=== PATIENT | female | born 1985 | race Caucasian/White ===

== ENCOUNTER 2024-01-09 05:12 | Inpatient (IN) | payer OTHER, SELFPAY ==
[2024-01-09] VITALS (9 sets, daily range): BP systolic 108–136; BP diastolic 66–100; BMI 24.9; BMI 24.0
[2024-01-09] MEDS: ZOFRAN 4 MG IV ×3 (02:11→06:36)
[2024-01-09] MEDS: MORPHINE SULFATE 4 MG IV (02:12)
[2024-01-09 02:18] LABS: % Basophils 0.7 % (0-2); % Eosinophils 2.8 % (0-6); % Immature Granulocytes 0.3 % (0-0.5); % Lymphocytes 34.8 % (20.5-51.1); % Monocytes 9.1 % (1.7-9.3); % Neutrophils 52.3 % (42.2-75.2); Absolute Basophils 0.1 10^3/uL (0-0.2); Absolute Eosinophils 0.2 10^3/uL (0-0.7); Absolute Lymphocytes 2.5 10^3/uL (1.2-3.4); Absolute Monocytes 0.7 10^3/uL (0.1-0.6); Absolute Neutrophils 3.8 10^3/uL (1.4-6.5); Hematocrit 34.6 % (37.0-47.0); Hemoglobin 11.6 g/dL (12.0-16.0); Mean Corp Hgb Conc. 33.5 g/dL (33.0-37.0); Mean Corpuscular Volume 83.4 fL (81.0-99.0); Nucleated Red Blood Cells % 0 %; Platelet Count 180 10^3/uL (130-400); Red Blood Cell Count 4.15 10^6/uL (4.20-5.40); Red Cell Dist. Width 14.8 % (11.5-14.5); White Blood Cell Count 7.2 10^3/uL (4.8-10.8)
--- NOTE | 2024-01-09 02:21 | ED.GENMED ---
History of Present Illness
<BRANDON Basilio - Last Filed: 01/09/24 04:35>
General
Chief Complaint: Abdominal Pain
Source: patient
Exam Limitations: none
Time Seen by Provider: 01/09/24 02:09
Nursing documentation reviewed up to this point in time: agreed with
History of Present Illness
History of Present Illness:
Patient is a 38yo F w/ no significant PMH who presents w/ abd pain x2hrs. Pain started suddenly and awoke pt from sleep. Reports pain started in LUQ and moved to RUQ. Pain is described as sharp, rated 8/10, and radiating to back. Worse w/
inspiration ad laying back. Better w/ leaning forward. Admits to nausea due to pain. Denies vomiting, diarrhea, and constipation. Pt admits to 2 recent medication changes. Weaned off Lexpro ending this weak and lisinopril changed to nifedipine which
pt stopped taking yesterday.
Review of Systems
<BRANDON Basilio - Last Filed: 01/09/24 04:35>
Review of Systems
Respiratory: Denies cough or trouble breathing
Cardiac: Denies chest pain or palpitations
ABD/GI: Reports abdominal pain and nausea; Denies vomiting, diarrhea or constipated
: Denies dysuria
Neurological: Denies dizzy, headache, weakness or numbness
Phy Exam
<BRANDON Basilio - Last Filed: 01/09/24 04:35>
General Physical Exam
General Presentation: severe distress
General age: appears stated age
General Skin: warm and dry
General Habitus: normal
General Mental: tearful
Cardiovascular Exam
Cardiovascular Exam: no edema, no gallop, no murmur and tachycardia
Pulmonary Exam
Pulmonary Exam: lungs clear, no respiratory distress, no rales, no crackles, no rhonchi and no wheezing
Gastrointestinal Exam
Gastrointestinal Exam: normal bowel sounds, soft, non distended and other (positive Humphrey sign )
Palpation: left upper quadrant: Minimal tenderness, left lower quadrant: No tenderness, right upper quadrant: Severe tenderness and right lower quadrant: No tenderness
Neurological Exam
Neurological Exam: alert, oriented x3, no motor deficits, no sensory deficits and speech normal
Course
<Madai Potts [facility] - Last Filed: 01/09/24 04:35>
Orders/Labs/Results
Orders:
Orders
01/09/24 02:03
IV Insert/Care/Rem.- Treatment PRN
Test Result ONCE
01/09/24 02:09
Complete Blood Count/With Diff Urgent
Comprehensive Metabolic Panel Urgent
HCG, Serum Qualitative Screen Urgent
Comment: Notify provider if positive test present
Lipase Urgent
01/09/24 02:10
Morphine Sulfate 4 mg .ROUTE .STK-MED ONE
Ondansetron Injectable [Zofran] 4 mg .ROUTE .STK-MED ONE
01/09/24 02:11
Morphine Sulfate 4 mg IV NOW STA
Ondansetron Injectable [Zofran] 4 mg IV NOW STA
01/09/24 02:18
US Abdomen Complete/Upper Urgent
Comment:
Reason For Exam: PAIN
01/09/24 03:44
HYDROmorphone [Dilaudid] 0.5 mg IV NOW STA
Ondansetron Injectable [Zofran] 4 mg IV NOW STA
01/09/24 04:03
Admit/Transfer Patient As Directed
Co-Sign Provider:
Level of Care: Inpatient admission
Assign to:: Medical/Surgical
Physician / Group: Florencio
Diagnosis: Symptomatic Cholelithiasis
Reason for Hospitalization: Symptomatic Cholelithiasis
Expected length of stay greater than two midnights?: Yes
ELOS- Estimated Length of Stay in days: 3
I certify the patient meets the requirements for IP care: Yes
PRN Pain Medication Management As Directed
May give lesser potent ordered pain med per pt: Yes
preference::
Protocol:: Medication orders for pain may be administered in a
manner that supports deferring to patient preference
when the pt is:
- Requesting an ordered lesser potent pain medication.
Least to most potent pain medications are defined
as: acetaminophen < NSAID < tramadol < opioids
(morphine, oxycodone, hydromorphone).
- Requesting a lesser dose of the same medication IF
ORDERED.
- Requesting a less intrusive route of administration
if both routes are prescribed by the provider (PO <
IV).
01/09/24 04:04
Code Status As Directed
Resuscitation Status: Full Code
Abnormal Lab Results
01/09/24
02:09
RBC 4.15 L 10^6/uL
(4.20-5.40)
Hgb 11.6 L g/dL
(12.0-16.0)
Hct 34.6 L %
(37.0-47.0)
RDW 14.8 H %
(11.5-14.5)
MPV 12.0 H fL
(7.4-10.4)
Absolute Monos (auto) 0.7 H 10^3/uL
(0.1-0.6)
ALT 36 H U/L
(0-35)
01/09/24 02:09
01/09/24 02:09
Vital Signs
Initial and Last Documented VS:
Initial Vital Signs
Temp Pulse Resp BP Pulse Ox
98.8 F 90 26 136/100 100
01/09/24 01:51 EST 01/09/24 01:51 EST 01/09/24 01:51 EST 01/09/24 01:51 EST 01/09/24 01:51 EST
Last Documented Vital Signs
Temp Pulse Resp BP Pulse Ox
98.8 F 90 26 126/80 100
01/09/24 01:51 EST 01/09/24 01:51 EST 01/09/24 01:51 EST 01/09/24 03:13 01/09/24 03:45
<Alhaji Concepcion DO - Last Filed: 01/09/24 03:47>
Orders/Labs/Results
Orders:
Orders
01/09/24 02:03
IV Insert/Care/Rem.- Treatment PRN
Test Result ONCE
01/09/24 02:09
Complete Blood Count/With Diff Urgent
Comprehensive Metabolic Panel Urgent
HCG, Serum Qualitative Screen Urgent
Comment: Notify provider if positive test present
Lipase Urgent
01/09/24 02:10
Morphine Sulfate 4 mg .ROUTE .STK-MED ONE
Ondansetron Injectable [Zofran] 4 mg .ROUTE .STK-MED ONE
01/09/24 02:11
Morphine Sulfate 4 mg IV NOW STA
Ondansetron Injectable [Zofran] 4 mg IV NOW STA
01/09/24 02:18
US Abdomen Complete/Upper Urgent
Comment:
Reason For Exam: PAIN
01/09/24 03:44
HYDROmorphone [Dilaudid] 0.5 mg IV NOW STA
Ondansetron Injectable [Zofran] 4 mg IV NOW STA
01/09/24 04:03
Admit/Transfer Patient As Directed
Co-Sign Provider:
Level of Care: Inpatient admission
Assign to:: Medical/Surgical
Physician / Group: Florencio
Diagnosis: Symptomatic Cholelithiasis
Reason for Hospitalization: Symptomatic Cholelithiasis
Expected length of stay greater than two midnights?: Yes
ELOS- Estimated Length of Stay in days: 3
I certify the patient meets the requirements for IP care: Yes
PRN Pain Medication Management As Directed
May give lesser potent ordered pain med per pt: Yes
preference::
Protocol:: Medication orders for pain may be administered in a
manner that supports deferring to patient preference
when the pt is:
- Requesting an ordered lesser potent pain medication.
Least to most potent pain medications are defined
as: acetaminophen < NSAID < tramadol < opioids
(morphine, oxycodone, hydromorphone).
- Requesting a lesser dose of the same medication IF
ORDERED.
- Requesting a less intrusive route of administration
if both routes are prescribed by the provider (PO <
IV).
01/09/24 04:04
Code Status As Directed
Resuscitation Status: Full Code
Abnormal Lab Results
01/09/24
02:09
RBC 4.15 L 10^6/uL
(4.20-5.40)
Hgb 11.6 L g/dL
(12.0-16.0)
Hct 34.6 L %
(37.0-47.0)
RDW 14.8 H %
(11.5-14.5)
MPV 12.0 H fL
(7.4-10.4)
Absolute Monos (auto) 0.7 H 10^3/uL
(0.1-0.6)
ALT 36 H U/L
(0-35)
01/09/24 02:09
01/09/24 02:09
Vital Signs
Initial and Last Documented VS:
Initial Vital Signs
Temp Pulse Resp BP Pulse Ox
98.8 F 90 26 136/100 100
01/09/24 01:51 EST 01/09/24 01:51 EST 01/09/24 01:51 EST 01/09/24 01:51 EST 01/09/24 01:51 EST
Last Documented Vital Signs
Temp Pulse Resp BP Pulse Ox
98.8 F 90 26 126/80 100
01/09/24 01:51 EST 01/09/24 01:51 EST 01/09/24 01:51 EST 01/09/24 03:13 01/09/24 03:45
<BRANDON Basilio - Last Filed: 01/09/24 04:35>
MDM/Problems Addressed
Differential Diagnosis Includes:
cholelithiasis, pancreatitis, cholecystitis
<BRANDON Basilio - Last Filed: 01/09/24 04:35>
*Critical Care Note
Total Time (30-74mins, 75-104mins- exclusive of procedures): Not Applicable
<Alhaji Concepcion DO - Last Filed: 01/09/24 03:47>
Update Note
Update Note:
Right upper quadrant ultrasound
IMPRESSION:
Cholelithiasis and gallbladder distention without gallbladder wall thickening, pericholecystic fluid, or sonographic Humphrey's sign to suggest acute cholecystitis.
ED Attending Note
<BRANDON Basilio - Last Filed: 01/09/24 04:35>
-
Portions of this chart may have been created with voice recognition software.� Occasional wrong word or��sound alike� substitutions may have occurred due to the inherent limitations of voice recognition software.
<Alhaji Concepcion DO - Last Filed: 01/09/24 03:47>
ED Attending Note
Patient seen and examined by attending physician: Yes
I performed the substantive portion of visit, reviewed & personally made and approve the management plan that is documented in note by myself or DEVI.: Yes
ED Attending Note:
38-year-old female presents with right upper quadrant abdominal pain that began 2 hours prior to arrival. Patient does report nausea and pain that wraps around her abdomen. Denies fever or chills. Did report some vomiting. Patient recently lost
80 pounds in the last 6 months purposefully with Zepbound. Patient quit tobacco denies alcohol or drug use. Patient was seen in conjunction with the PA student. I have reviewed and agree with the history and treatment plan presented. On my
independent physical exam, patient is awake, alert, and oriented x3 minimal acute distress at rest. Positive right upper quadrant abdominal pain consistent with Humphrey sign. No right lower or left lower quadrant abdominal pain. Skin is warm and
dry. Patient mentating appropriately.
Ultrasound shows cholelithiasis without evidence of cholecystitis. On repeat exam, patient has right upper quadrant abdominal pain consistent with a Humphrey sign. Patient received several doses of pain medication while here. Patient to be admitted
to the hospitalist service
Discharge Plan
Departure
Patient Disposition: Admit
Date of Disposition: 01/09/24
Time of Disposition: 03:47
Admit to: Med/Surg
Presentation/result/management discussed w/ accepting MD/DO: Hospitalist
Condition: Fair
Discharge Problem:
gallstones, Biliary colic, Abdominal pain
Prescriptions:
No Action
No Current Medications
0
Referrals:
Jessie Alatorre PA-C [Family Provider] -
Interventions
Interventions:
*Risk Screen - Suicide Last Done: 01/09/24 01:51
*General Assessment Last Done: 01/09/24 02:18
*Neglect/Abuse Screening Last Done: 01/09/24 01:51
ED- Fall Risk Assessment Last Done: 01/09/24 02:18
*ED COVID-19 Vaccine History Last Done: 01/09/24 02:18
DC-Ovmdce-Lluygnolzg Assessment Last Done: 01/09/24 02:18
Discharge Date and Time
Print Language: BULGARIAN
[2024-01-09 02:42] LABS: ALT (SGPT) 36 U/L (0-35); AST (SGOT) 32 U/L (14-36); Albumin 4.2 g/dl (3.5-5.0); Alkaline Phosphatase 47 U/L (38-126); Blood Urea Nitrogen 11 mg/dl (7-17); Carbon Dioxide 26 mmol/L (22-30); Chloride 104 mmol/L (98-107); Estimated Creatinine Clearance 119 ml/min; Glucose 96 mg/dl (70-99); Lipase 204 U/L (23-300); Sodium 141 mmol/L (135-145); Total Bilirubin 0.3 mg/dl (0.2-1.3); Total Protein 6.9 g/dl (6.3-8.2); eGFR > 60.00
[2024-01-09 02:59] LABS: HCG, Serum Qualitative Screen Negative
[2024-01-09] MEDS: DILAUDID 0.5 MG IV ×2 (03:52→06:43)
--- NOTE | 2024-01-09 04:05 | HPS.HSE ---
Family Physician
-
Family Physician: GEORGETTE Hill
Chief Complaint
-
Abd Pain
History of Present Illness
Patient is a 38 y F with PMH significant for hypertension, anxiety and obesity who presents to ED complaining of abdominal pain. Patient states that she was feeling well yesterday. She woke around 11:30 PM with burning pain under her ribs. The
pain persisted and she developed nausea with a few episodes of non-bloody emesis at home. Her symptoms did not improve with time and patient presented to the ED for further evaluation.
Patient reports prior history of similar episodes attributed to gallbladder 'sludge' in her 20s. These episodes typically resolved after a few hours - which her current symptoms have not.
Patient also notes that she has lost 80 lbs since May 2023 on tirzepatide. She stopped taking this medication about 3-4 weeks ago.
Patient states that she is planning to try for another and - in preparation - she has weaned off of her Lexapro and stopped her lisinopril.
She is currently taking no prescription medications.
In the ED, patient is having persistent RUQ pain and nausea despite medications thus far.
Medical History
Past Medical History
Past Medical History: Reports Other
Additional Past Medical History:
Hypertension
Anxiety / Depression
Obesity
Past Surgical History: Reports Other
Additional Past Surgical History:
Appendectomy
Ovarian Cystectomy
Social History
Tobacco: Former Smoker (Quit smoking 4 years ago.)
Alcohol: Occasional
Drug: None
Family History
Family History: Not pertinent
Allergies / Home Medications
Allergies reflects when Allergies were last updated in [email or web address].
Home Medications with original date entered in [email or web address]
Allergy/Medication List:
Allergies
Allergy/AdvReac Type Severity Reaction Status Date / Time
No Known Allergies Allergy Verified 01/09/24 01:53 EST
Home Medications
No Meds [No Current Medications] 01/09/24
Review of Systems
-
History Source: Patient
A 12 point ROS was completed and negative except as noted: Yes
Constitutional: Denies Fever, Fatigue or Chills
EENT: Denies Sore Throat
Respiratory: Denies Cough or Trouble Breathing
Cardiac: Denies Chest Pain or Palpitations
Abdomen/GI: Reports Abdominal Pain, Nausea and Vomiting; Denies Diarrhea, Constipated, Bloody Stools or Black Stools
: Denies Dysuria or Flank Pain
Musculoskeletal: Denies Joint Pain or Edema
Neurological: Denies Dizzy or Headache
Psych: Denies Depression or Anxiety
Physical Exam
Vital Signs
Vital Signs
Temp Pulse Resp BP Pulse Ox
98.8 F 90 26 126/80 100
01/09/24 01:51 EST 01/09/24 01:51 EST 01/09/24 01:51 EST 01/09/24 03:13 01/09/24 03:45
Physical Exam
General: Other (38y F in mild distress due to pain.)
HEENT: Moist mucous membranes and PERRLA
Respiratory: Clear; No Wheezes, Rales or Rhonchi
Cardiac: S1/S2 and Regular Rhythm; No Murmur
GI: Soft, Non Distended, Normal Bowel Sounds and Other (Pos RUQ tenderness.)
Musculoskeletal: No Clubbing, No Cyanosis and No Edema
Neuro: AO x 3
Laboratory Results
-
01/09/24 02:09
01/09/24 02:09
Laboratory Results
Total Bilirubin 0.3 mg/dl (0.2-1.3) 01/09/24 02:09
AST 32 U/L (14-36) 01/09/24 02:09
ALT 36 U/L (0-35) H 01/09/24 02:09
Alkaline Phosphatase 47 U/L (38-126) 01/09/24 02:09
Lipase 204 U/L (23-300) 01/09/24 02:09
Impression/Plan
-
A/P: Patient is a 38y F with PMH significant for hypertension and anxiety / depression who presents to ED complaining of sudden onset of RUQ pain and N/V this evening.
Symptomatic Cholelithiasis
- Admit for further evaluation and treatment.
- Patient presents with RUQ pain and N/V.
- US shows gallstones without evidence of pericholecystic fluid, wall thickening, ductal dilation, etc.
- Afebrile and non-toxic. LFTs are unremarkable.
- No current evidence of acute cholecystitis, ascending cholangitis or biliary obstruction.
- Supportive care with pain control, antiemetics, etc.
- Surgery evaluation for eventual cholecystectomy.
Benign Hypertension
- Stable. BP appears well-controlled at present - even off of medications.
- Follow for any changes.
History of Obesity
- s/p significant weight gain with diet, exercise and tirzepatide.
- Tirzepatide may contribute to cholelithiasis / cholecystitis - patient stopped this 3-4 weeks ago.
- Also note that she does have prior h/o GB disease / symptoms as well, prior to beginning this medication.
DVT Prophylaxis: SCDs
Code Status: Full
[2024-01-09] MEDS: LR 1000 IV (06:36)
--- NOTE | 2024-01-09 06:55 | PTCARENOTE ---
New admit to 2S from ER. Able to ambulate to room bed independently, A&Ox3, VSS, vomiting upon arrival, given Zofran - see MAR, states 09/14 abdominal pain - given Dilaudid, see MAR. Admission questions completed, report passed along to dayshift
nurse.
[2024-01-09] MEDS: NSS (PRESERVATIVE FREE) 10 ML IV (07:39)
[2024-01-09] MEDS: PROTONIX IV 40 MG IV (07:39)
[2024-01-09] MEDS: COMPAZINE 10 MG IV (07:50)
[2024-01-09 08:16] LABS: Magnesium 1.8 mg/dl (1.6-2.3)
--- NOTE | 2024-01-09 08:57 | W.PN.HOSP.TC ---
Today's Communication/Plan
-
repeat labs this afternoon
IVF
F/U GS recommendations
pain control/ anti-emetics
Assessment / Plan
Assessment / Plan
Ms. Kaleigh Dickinson is a 38y woman with PMH significant for hypertension and anxiety / depression who presents to ED complaining of sudden onset of RUQ pain and N/V this evening.
RUQ US
IMPRESSION:
Mild biliary sludge. Cholelithiasis. No sonographic evidence of acute cholecystitis.
Slight distention of the common bile duct, 7 mm. Recommend correlation with liver function tests.
The examination was performed after-hours on an emergency basis, with initial preliminary interpretation provided by [facility].
Symptomatic Cholelithiasis
- Patient presents with RUQ pain and N/V.
- US shows gallstones without evidence of pericholecystic fluid, wall thickening, ductal dilation, etc.
- Afebrile and non-toxic. LFTs are unremarkable.
- No current evidence of acute cholecystitis, ascending cholangitis or biliary obstruction.
- Supportive care with pain control, antiemetics, etc.
- Surgery evaluation for eventual cholecystectomy.
Benign Hypertension
- Stable. BP appears well-controlled at present - even off of medications.
- Follow for any changes.
History of Obesity
- s/p significant weight loss with diet, exercise and tirzepatide.
- Tirzepatide may contribute to cholelithiasis / cholecystitis - patient stopped this 3-4 weeks ago.
- Also note that she does have prior h/o GB disease / symptoms as well, prior to beginning this medication.
DVT Prophylaxis: SCDs
Code Status: Full
Anticipated Discharge: 24 - 48 hours
Subjective/Interval History
-
Date of Service: January 09, 2024
Objective Data
-
Labs:
Laboratory Results
01/09/24
02:09
WBC 7.2
Hgb 11.6 L
Hct 34.6 L
Plt Count 180
Sodium 141
Potassium 4.0
Chloride 104
Carbon Dioxide 26
BUN 11
Creatinine 0.7
Glucose 96
Calcium 10.0
Total Bilirubin 0.3
AST 32
ALT 36 H
Alkaline Phosphatase 47
Vital Signs:
Vital Signs
Temp Pulse Resp BP Pulse Ox
98.1 F 81 18 122/80 100
01/09/24 07:43 01/09/24 07:43 01/09/24 07:43 01/09/24 07:43 01/09/24 07:43
--- NOTE | 2024-01-09 12:11 | CON.GS ---
Consultation
-
Date/Time Consultation Requested: 01/09/2024, 06:30
Date/Time Consultation Performed: 01/09/2024, 09:45
Requesting Provider: Carlos Matias DO
Performing Provider: Nam Sawyer MD
Reason for Consultation: biliary colic
Medical History
-
Chief Complaint: RUQ abdominal pain
History of Present Illness:
38yo female with a past medical history of biliary colic, presents to the ER due to right upper quadrant abdominal pain. The patient states that she has had multiple gallbladder attacks in her 20s but this instance was much worse. Typically when
she is symptomatic, the pain only last a few hours and then subsides. Since admission to the ER her pain is much improved. She was nauseated and vomiting at home but this has since stopped. The patient is currently on Zepbound and has lost 80
pounds since May 2023. She stopped taking the medication about 4 weeks ago due to preparation and trying for another . Ultrasound of the abdomen shows mild biliary sludge with cholelithiasis. No sonographic evidence of acute
cholecystitis. There is slight distention of the common bile duct 7 mm. Her vital signs are normal. She has remained afebrile. Her WBC is 7.2. We have been consulted for further surgical opinion.
Past Medical History
Past Medical History: HTN, Psychiatric (anxiety/depression) and Other (obesity)
Social History
Tobacco: Former Smoker
Alcohol: Occasional
Drug: None
Family History
Family History: Reviewed & Not Pertinent
Allergies / Home Medications
Allergy/AdvReac Type Severity Reaction Status Date / Time
No Known Allergies Allergy Verified 01/09/24 01:53 EST
�Medication �Instructions �Recorded �Confirmed �Type
No Meds [No Current Medications] 01/09/24 01/09/24 History
Review of Systems
-
History Source: Patient
Abdomen/GI: Abdominal Pain (RUQ), Nausea and Vomiting
A 10 point review of systems was completed, and was negative except as per HPI.
Physical Exam
Vital Signs
Temp Pulse Resp BP Pulse Ox
98.1 F 81 18 122/80 100
01/09/24 07:43 01/09/24 07:43 01/09/24 07:43 01/09/24 07:43 01/09/24 07:43
01/08/24 01/09/24 01/10/24
07:59 06:59 06:59
Actual Weight
Body Mass Index (BMI) 24.0
Lab Results
01/09/24 02:09
WBC 7.2 10^3/uL (4.8-10.8) 01/09/24 02:09
Hgb 11.6 g/dL (12.0-16.0) L 01/09/24 02:09
Hct 34.6 % (37.0-47.0) L 01/09/24 02:09
Plt Count 180 10^3/uL (130-400) 01/09/24 02:09
Abs Immat Gran (auto) 0.0 10^3/uL (0-0.05) 01/09/24 02:09
Neutrophils % 52.3 % (42.2-75.2) 01/09/24 02:09
Physical Exam
General: Well Developed, Well Nourished and No Apparent Distress
GI: Soft, Non Distended and Tender (RUQ - mild)
Neuro: AO x 3
Psych: Calm
Data Reviewed
-
Ultrasound: Report Reviewed by me, Discussed with Physician and Discussed with Patient
Labs: Labs Reviewed by me, Discussed with Physician and Discussed with Patient
Old Records: Reviewed
Assessment / Plan
-
Assessment: 38-year-old female with a history of gallbladder attacks presents with right upper quadrant pain nausea and vomiting and found to have mild biliary sludge, cholelithiasis, and slight distention of the common bile duct.
Plan:
-May require a cholecystectomy. Will defer to general surgery tomorrow.
-Okay to start on clear liquid diet, n.p.o. at midnight.
-Antiemetics and pain medication as needed
[2024-01-09 14:11] LABS: ALT (SGPT) 31 U/L (0-35); AST (SGOT) 26 U/L (14-36); Albumin 3.4 g/dl (3.5-5.0); Alkaline Phosphatase 32 U/L (38-126); Blood Urea Nitrogen 8 mg/dl (7-17); Carbon Dioxide 26 mmol/L (22-30); Chloride 106 mmol/L (98-107); Estimated Creatinine Clearance 119 ml/min; Glucose 96 mg/dl (70-99); Sodium 141 mmol/L (135-145); Total Bilirubin 0.5 mg/dl (0.2-1.3); Total Protein 5.9 g/dl (6.3-8.2); eGFR > 60.00
--- NOTE | 2024-01-09 15:04 | CM ---
Pt presented from home w/ with pmhx significant for biliary cholic. Pt with c/o RUQ pain, N/V (now resolved). Ab US with +mild biliary sludge with cholelithiasis. ADAT, cont zofran and pain mgmt as needed, NPO s/p MN for possible lap choli-
pending Surgerical c/s tomorrow.
CM reviewed chart. Spoke w/pt, explained role and discussed anticipated dc plan/options. Pt resides w/ in a [place] w/1 thomas. [employer] I/amb and adls, working and driving. Family will transport at dc. There are no skilled needs noted at this time.
Nursing to encourage pt independence OOB to chair and w/toileting. Please consult CM/SW should dc planning needs change.
CM/SW will continue to follow to ensure a safe and timely dc.
[2024-01-09] MEDS: TYLENOL 650 MG PO (15:57)
[2024-01-10] MEDS: PROTONIX IV 40 MG IV (07:30)
[2024-01-10] MEDS: NSS (PRESERVATIVE FREE) 10 ML IV (07:30)
[2024-01-10 07:50] VITALS: BP 105/75
[2024-01-10 09:34] LABS: Hematocrit 34.8 % (37.0-47.0); Hemoglobin 11.6 g/dL (12.0-16.0); Mean Corp Hgb Conc. 33.3 g/dL (33.0-37.0); Mean Corpuscular Hgb 29.1 pg (27.0-31.0); Mean Corpuscular Volume 87.4 fL (81.0-99.0); Mean Platelet Volume 12.1 fL (7.4-10.4); Platelet Count 147 10^3/uL (130-400); Red Blood Cell Count 3.98 10^6/uL (4.20-5.40); Red Cell Dist. Width 15.1 % (11.5-14.5); White Blood Cell Count 5.8 10^3/uL (4.8-10.8)
--- NOTE | 2024-01-10 09:54 | W.SUR.PREOP ---
Pre-Operative Surgical Note
-
I have examined this patient prior to the performance of the scheduled procedure.
The patient's condition is unchanged from the time of the current History and
Physical and the patient is able to undergo the scheduled procedure.
--- NOTE | 2024-01-10 09:56 | W.PN.GS2 ---
Today's Communication / Plan
-
OR today
Assessment / Plan
-
This is a 38-year-old female who presents with right upper quadrant pain in the setting of multiple attacks over the past several years. Exam, imaging, blood work all consistent with early acute cholecystitis versus biliary colic.
Will plan for a laparoscopic cholecystectomy in the OR today.
N.p.o., IV fluids, IV antibiotics ordered.
Risks/Benefits/Alternatives, expected postoperative course and possible complications (bleeding, infection, injury to surrounding structures, acute/chronic pain) discussed at length. Patient wishes to proceed with surgery. All questions answered.
Consent obtained.
I spent 50 minutes in total for the care of this patient today including direct patient care and counseling, reviewing labs, imaging, coordination of care, as well as documentation.
Subjective Data
-
Date of Service: January 10, 2024
Interval Events:
No acute events overnight. Slept well. Pain Controlled. Denies Nausea/Vomiting.
Objective Data
-
Intake and Output
01/09/24 01/10/24 01/11/24
06:59 06:59 06:59
Intake Total 2160 / 2160
Balance 2160 / 2160
Intake:
Oral fluids 1200 / 1200
IV fluids (Total) 960 / 960
Other:
Number of approximated MODERATE 3
amounts of urine
Vital Signs
Temp Pulse Resp BP Pulse Ox
97.8 F 69 16 105/75 98
01/10/24 07:50 01/10/24 07:50 01/10/24 07:50 01/10/24 07:50 01/10/24 07:50
Lab Results
01/10/24 09:18
Calcium 9.0 mg/dl (8.4-10.2) 01/09/24 13:42
Magnesium 1.8 mg/dl (1.6-2.3) 01/09/24 02:09
Total Bilirubin 0.5 mg/dl (0.2-1.3) 01/09/24 13:42
AST 26 U/L (14-36) 01/09/24 13:42
ALT 31 U/L (0-35) 01/09/24 13:42
Alkaline Phosphatase 32 U/L (38-126) L 01/09/24 13:42
Total Protein 5.9 g/dl (6.3-8.2) L 01/09/24 13:42
Albumin 3.4 g/dl (3.5-5.0) L 01/09/24 13:42
Physical Exam
-
GENERAL/NEURO: Awake, Alert, no distress
CHEST: Unlabored breathing on RA
ABDOMEN: Soft, tender to palpation in the right upper quadrant.
[2024-01-10 10:24] LABS: ALT (SGPT) 581 U/L (0-35); AST (SGOT) 538 U/L (14-36); Albumin 3.4 g/dl (3.5-5.0); Alkaline Phosphatase 94 U/L (38-126); Blood Urea Nitrogen 8 mg/dl (7-17); Calcium 9.1 mg/dl (8.4-10.2); Carbon Dioxide 28 mmol/L (22-30); Chloride 105 mmol/L (98-107); Direct Bilirubin 0.2 mg/dl (0.0-0.4); Estimated Creatinine Clearance 119 ml/min; Glucose 84 mg/dl (70-99); Potassium 4.8 mmol/L (3.5-5.1); Sodium 141 mmol/L (135-145); Total Bilirubin 1.1 mg/dl (0.2-1.3); eGFR > 60.00
--- NOTE | 2024-01-10 11:57 | W.IMMPOSTOP ---
Surgical Immed Post Op Note
-
Primary Surgeon: Frederick Glover MD
Assisting Surgeon: None
Pre-op Diagnosis: Acute cholecystitis
Post-op Diagnosis: Same
Procedure Performed: Laparoscopic cholecystectomy with cholangiogram
Anesthesia Type: General
Specimen / Cultures: Gallbladder and contents
Estimated Blood Loss: 11 cc
Complications: None
Operative Findings: Early acute edematous cholecystitis. Critical view of safety obtained prior to cholangiogram which demonstrated no filling defects and normal biliary anatomy. 4 small cholesterol gallstones were milked out of the cystic duct
and removed prior to a cholangiogram. The duct was ligated with a clip followed by a 0 PDS Endoloop.
POST OP PLAN:
Imaging: None
Labs: Routine AM, if still here
Diet: Advance to Regular as tolerated
Analgesia: Tylenol 650mg q6 Aly, Indy 5mg q6 PRN, Dilaudid 0.5mg q2h PRN
Neuro/vascular checks: q4h
AC/AP: Hold Therapeutic AC, Ok for DVT PPx
Activity: Ad Tracie
Wound/Incisions/Drains: Routine
Abx: Can continue while admitted inpatient.
Dispo: Anticipate discharge home later today
--- NOTE | 2024-01-10 12:00 | OR.RPT ---
Operative Report
Operative Report
Patient Name: Kaleigh Dickinson
: 1985
Date of Operation: 01/10/2024
Preoperative Diagnosis: Acute cholecystitis
Postoperative Diagnosis: Same
Procedure(s):
Laparoscopic Cholecystectomy with Cholangiogram
Surgeon(s):
Dr. Glover
Technical Support Specialist(s):
ALLEN Claire
Anesthesia: General
Estimated Blood Loss: 11 cc
Urine Output: None
Drains/Lines/Implants: None
Specimens:
1. Gallbladder and contents
HPI/Surgical Indications:
This is a 38-year-old female who presents with 1 to 2-day history of right upper quadrant abdominal pain, in the setting of same over the past several years. Exam, labs and imaging are consistent with early acute cholecystitis.
Risks/Benefits/Alternatives were discussed at length, and the patient agreed to proceed with surgery.
Operative Findings: Early acute edematous cholecystitis. Critical view of safety obtained prior to cholangiogram which demonstrated no filling defects and normal biliary anatomy. 4 small cholesterol gallstones were milked out of the cystic duct
and removed prior to a cholangiogram. The duct was ligated with a clip followed by a 0 PDS Endoloop.
Procedure Description:
The patient was brought to the Operating Room and placed in the supine position with one arm tucked. Following uneventful induction of general endotracheal anesthesia, an orogastric tube was placed. The abdomen was prepped and draped in the usual
sterile fashion. A timeout was performed confirming the procedure, consent, and that IV antibiotics were infused and sequential compression devices were confirmed to be on. The abdomen was entered using an infraumbilical open Nelly technique with a
12 mm trochar. This was somewhat challenging as we entered the preperitoneal space with a very large falciform ligament which we had to incise before ultimately entering the abdomen. Pneumoperitoneum to 15 mmHg pressure was obtained without
difficulty and we confirmed that no injury had occurred during our entry. The patient was positioned in reverse Trendelenberg and rotated with the right side up slightly. Three (3) 5mm trocars were then placed along the right subcostal margin. The
gallbladder was slightly thickened and edematous with some flimsy adhesions overlying the infundibulum which were lysed with electrocautery and blunt dissection. A locking grasping forceps was placed on the fundus of the gallbladder where it was
then retracted cephalad and to the right. Using appropriate grasping instruments, the peritoneum overlying the triangle of Calot was incised and extended superiorly on both the anterior and posterior gallbladder arshad. The infundibulum was
dissected off the cystic plate. The cystic triangle was dissected until a critical view of safety was achieved. The cystic artery was medialized, dissected and controlled with 2 proximal clips and 1 distal. The cystic duct/gallbladder junction in
turn was identified, dissected circumferentially and a clip was placed. A ductotomy was made and a cholangiocatheter on an Santos clamp was inserted into the cystic duct. Four small cholesterol gallstones were milked out of the cystic duct before we
were able to successfully cannulate the duct. A C-arm was draped and brought into the field. An intra-operative cholangiogram was performed and was noted to have:
No filling defects in the biliary tree
No significant biliary dilation
Brisk flow of contrast into the duodenum
Normal biliary anatomy
The catheter was then removed and the cystic duct was controlled with a clip followed by a 0 PDS Endoloop. After ensuring both the artery and duct were divided, the gallbladder was freed from the liver using electrocautery. There was no spillage
of bile or stones. The gallbladder bed was inspected and excellent hemostasis was obtained. The gallbladder was extracted through the 12 mm trocar site using an endocatch bag. The abdomen was again irrigated and excellent hemostasis was assured.
All remaining trocars were then removed and the pneumoperitoneum was evacuated. The 12 mm trocar site was closed using 0 PDS suture and confirmed on laparoscopy to be airtight. All trocar sites were closed at the skin level using 4-0 Monocryl
followed by Dermabond. Overall, the patient tolerated the procedure well and was taken to the Recovery Room postoperatively in stable condition.
I was the attending physician and performed the procedure with assistance from the BUTTON TUFTER above. I was present for all portions of the case, including skin closure.
Frederick Glover MD
[2024-01-10 12:10] VITALS: BP 105/75; BP 118/76
[2024-01-10 12:15] VITALS: BP 118/71
[2024-01-10 12:30] VITALS: BP 107/71
--- NOTE | 2024-01-10 12:32 | CM ---
Reviewed the chart notes. Patient has lap saul today. CM continues to be available to patient/family and is monitoring medical plan for needs at discharge.
Plan: Discharge to home when medically stable. No anticipated needs identified at this time.
[2024-01-10 12:45] VITALS: BP 106/72
--- NOTE | 2024-01-10 13:07 | PTCARENOTE ---
received pt from [facility]. aaox3. vss. 5 lap sites w/ surgi glue intact. Will monitor.
--- NOTE | 2024-01-10 14:30 | W.PN.HOSP.TC ---
Today's Communication/Plan
-
Cleared by general surgery for discharge today if tolerating diet
Assessment / Plan
Assessment / Plan
Ms. Kaleigh Dickinson is a 38y woman with PMH significant for hypertension and anxiety / depression who presents to ED complaining of sudden onset of RUQ pain and N/V this evening.
RUQ US
IMPRESSION:
Mild biliary sludge. Cholelithiasis. No sonographic evidence of acute cholecystitis.
Slight distention of the common bile duct, 7 mm. Recommend correlation with liver function tests.
The examination was performed after-hours on an emergency basis, with initial preliminary interpretation provided by [facility].
Symptomatic Cholelithiasis
- Patient presents with RUQ pain and N/V.
- US shows gallstones without evidence of pericholecystic fluid, wall thickening, ductal dilation, etc.
- Afebrile and non-toxic. LFTs are unremarkable.
- Status post laparoscopic cholecystectomy 01/09
- Continue antibiotics while inpatient, cleared by general surgery for discharge if tolerating diet postprocedure
Benign Hypertension
- Stable. BP appears well-controlled at present - even off of medications.
- Follow for any changes.
History of Obesity
- S/p significant weight loss with diet, exercise and tirzepatide.
- Tirzepatide may contribute to cholelithiasis / cholecystitis - patient stopped this 3-4 weeks ago.
- Also note that she does have prior h/o GB disease / symptoms as well, prior to beginning this medication.
DVT Prophylaxis: SCDs
Code Status: Full
Physical Exam
General: No acute distress
HEENT: Normocephalic, Atraumatic, EOMI, MMM
Respiratory: Clear to Auscultation bilaterally
Cardiac: Normal S1/S2, Regular Rate and Rhythm
GI: Soft, appropriate jose l-incisional tenderness, incisions clean/dry/intact
Extremities: No Clubbing, Cyanosis, or Edema
Neuro: Nonfocal/Grossly Intact
Psych: Calm, Cooperative
Derm: No Visible lesions
Anticipated Discharge: Today
Subjective/Interval History
-
Date of Service: January 10, 2024
Patient seen after her cholecystectomy. Her pain is tolerable. She complains of some bloating. She had some mild nausea, which resolved. No fever, no vomiting.
Objective Data
-
Labs:
Laboratory Results
01/10/24
09:18
WBC Pending
Hgb Pending
Hct Pending
Plt Count Pending
Sodium Pending
Potassium Pending
Chloride Pending
Carbon Dioxide Pending
BUN Pending
Creatinine Pending
Glucose Pending
Calcium Pending
Total Bilirubin Pending
AST Pending
ALT Pending
Alkaline Phosphatase Pending
Vital Signs:
Vital Signs
Temp Pulse Resp BP Pulse Ox
97.8 F 69 16 105/75 98
01/10/24 07:50 01/10/24 07:50 01/10/24 07:50 01/10/24 07:50 01/10/24 07:50
I&O
01/09/24 01/10/24 01/11/24
06:59 06:59 06:59
Intake Total 2160 / 2160
Balance 2160 / 2160
[2024-01-10] MEDS: TYLENOL 650 MG PO (14:50)
[2024-01-10 15:45] VITALS: BP 122/83
--- NOTE | 2024-01-10 16:11 | W.DCSUMMARY ---
Discharge Summary
Discharge Data
Date of Admission: 01/09/24
Date of Discharge: 01/10/24
-
Pending Results: No
Hospital Course
Discharge diagnosis:
Early acute cholecystitis
Cholelithiasis with biliary colic
History of obesity status post significant weight loss
Consults: General Surgery
Procedures:
01/10/2024 laparoscopic cholecystectomy
Hospital course:
38-year-old female with a past medical history of hypertension, anxiety, and obesity status post significant weight loss was admitted for biliary colic. Patient was seen in conjunction with general surgery. She underwent laparoscopic
cholecystectomy on 01/10/24. She received IV antibiotics while in the hospital.
She did well postoperatively. Her pain was controlled, she tolerated her diet. She is medically stable and cleared by general surgery for discharge. She needs to follow-up with her primary care doctor in 1 week, and general surgery in the office
in 2-3 weeks.
Disposition: Home self-care
Discharge planning: Required 39 minutes
Discharge Plan
-
Patient Disposition: Home (Routine Discharge)
Discharge Diagnosis/Procedures: Early cholecystitis, cholelithiasis
Condition: Good
Diet: Regular
Activity: No strenuous activity
Driving Restrictions: No driving for 24 hours
Activity Restrictions/Additional Instructions:
Instructions following Laparoscopic cholecystectomy
Please call [phone] if you have any questions or concerns after your surgery.
Wound Care:
Your incisions are covered with skin glue which will come off on it�s own in 5-10 days.
It is ok to shower the day after your surgery. Do not scrub the incisions, let soap and water wash over them and pat dry.
� Bruising around your incisions is normal.
� Using ice packs will help minimize this swelling.
� No swimming or soaking incisions for 1 week.
� Your stitches will dissolve and do not need to be removed.
Urinary retention:
If you are unable to urinate 6-8 hours after your surgery, please call [phone] to discuss further management.
Activity:
No heavy lifting more than 15 pounds for the next 3 weeks, then you may gradually lift heavier objects as tolerated by discomfort. Otherwise activity as tolerated by your comfort level.
Pain Management:
Use Tylenol, ibuprofen and ice packs to treat your pain.
� You may take 650 milligrams of Tylenol (Max 3 grams per day) every 6 hours, and 600 mg of ibuprofen also every 6 hours. (you can alternate them every 3 hours)
� You may use an ice pack to your incision as needed.
� If you still have pain not controlled by these measures, take your prescription pain medication as prescribed.
Medications:
You may resume your home medications.
Bowel Medications:
Prescription pain medication can make you constipated. If you take this medication, also take colace 100 mg twice daily (this is over the counter). If this is not sufficient, you may take Miralax (polyethylene glycol) to help move your bowels.
Diet:
After your procedure, there are no dietary restrictions. You may notice loose stools for up to 4 weeks after surgery with fatty meals, if this is the case you may have to adjust your diet as needed.
Driving restrictions:
No driving if you are taking prescription pain medication or if you think your normal reaction time and attentiveness has been slowed by your surgery.
Things to Look out for:
Worsening Abdominal pain, redness or drainage from incision
Call Doctor for:
Please call if you notice worsening redness or drainage from incision(s) lasting longer than 5 days after your surgery, any foul-smelling drainage from the incision, pain not controlled by pain medications, persistent nausea and vomiting, or for any
fevers greater than 101.3 F. The number for questions/concerns is [phone]
Follow-up:
Follow-up appointment will be scheduled with your surgeon in 3-4 weeks. Please call prior to your appointment if you have any questions or concerns. [phone]
Referrals:
Jessie Alatorre PA-C [Family Provider] - in one week
Frederick Glover MD [Active] - in two to four weeks
Prescriptions:
New
acetaminophen 325 mg Tablet
650 mg PO Q4HPRN PRN (Reason: Mild Pain / Temp > 101) Qty: 30 0RF
oxycodone 5 mg Tablet
5 mg PO Q4HPRN PRN (Reason: moderate pain) Qty: 20 0RF
Discharge Orders:
Discharge Patient (As Directed); Ordered 01/10/24
Ordered By: Wally Diego
Discharge Date and Time
Print Language: TOGOLESE
== END 2024-01-10 17:20 | disposition home or self-care (01) | DRG 419 ==
LOC: 2 SOUTH 05:12
PROVIDERS: Student in an Organized Health Care Education/Training Program; Surgery; ADMITTING PHYSICIAN Hospitalist; ATTENDING PHYSICIAN Family Medicine; EMERGENCY PHYSICIAN Student in an Organized Health Care Education/Training Program; FAMILY PHYSICIAN Physician Assistant; OTHER PHYSICIAN Surgery
PROC: 0FT44ZZ Resection of Gallbladder, Percutaneous Endoscopic Approach (ICD-10-PCS; 2024-01-10)
PROC: BF141ZZ Fluoroscopy of Gallbladder, Bile Ducts and Pancreatic Ducts using Low Osmolar Contrast (ICD-10-PCS; 2024-01-10)
DX: K80.00 Calculus of gallbladder with acute cholecystitis without obstruction (principal); I10 Essential (primary) hypertension; E66.9 Obesity, unspecified; Z68.24 Body mass index [BMI] 24.0-24.9, adult; F32.A Depression, unspecified; F41.9 Anxiety disorder, unspecified; K82.8 Other specified diseases of gallbladder; Z87.891 Personal history of nicotine dependence
CPT/HCPCS: 88304; 74330; 76000; 76700; 80053; 82248; 83690; 83735; 84703; 85025; 85027; 93005; 96374; 96375; 96376; 99285

== ENCOUNTER 2024-01-14 04:21 | Emergency (ER) | payer OTHER, SELFPAY ==
[2024-01-14 04:25] VITALS: BP 117/84
[2024-01-14 05:12] LABS: % Basophils 0.4 % (0-2); % Eosinophils 2.4 % (0-6); % Immature Granulocytes 0.3 % (0-0.5); % Lymphocytes 18.8 % (20.5-51.1); % Monocytes 8.1 % (1.7-9.3); Absolute Eosinophils 0.2 10^3/uL (0-0.7); Absolute Lymphocytes 1.8 10^3/uL (1.2-3.4); Absolute Monocytes 0.8 10^3/uL (0.1-0.6); Absolute Neutrophils 6.7 10^3/uL (1.4-6.5); Hematocrit 36.1 % (37.0-47.0); Hemoglobin 11.9 g/dL (12.0-16.0); Mean Corpuscular Hgb 28.6 pg (27.0-31.0); Mean Corpuscular Volume 86.8 fL (81.0-99.0); Mean Platelet Volume 11.3 fL (7.4-10.4); Nucleated Red Blood Cells % 0 %; Platelet Count 196 10^3/uL (130-400); Red Blood Cell Count 4.16 10^6/uL (4.20-5.40); Red Cell Dist. Width 15.2 % (11.5-14.5); White Blood Cell Count 9.6 10^3/uL (4.8-10.8)
[2024-01-14 05:31] LABS: ALT (SGPT) 311 U/L (0-35); AST (SGOT) 283 U/L (14-36); Alkaline Phosphatase 209 U/L (38-126); Blood Urea Nitrogen 9 mg/dl (7-17); Calcium 9.6 mg/dl (8.4-10.2); Carbon Dioxide 31 mmol/L (22-30); Chloride 102 mmol/L (98-107); Glucose 98 mg/dl (70-99); Lipase 183 U/L (23-300); Sodium 142 mmol/L (135-145); Total Bilirubin 0.9 mg/dl (0.2-1.3); Total Protein 6.8 g/dl (6.3-8.2); eGFR > 60.00
--- NOTE | 2024-01-14 06:43 | ED.GENMED ---
History of Present Illness
General
Chief Complaint: Abdominal Pain
Source: patient
Exam Limitations: none
Time Seen by Provider: 01/14/24 04:37
Nursing documentation reviewed up to this point in time: agreed with
History of Present Illness
History of Present Illness:
This a pleasant 38-year-old female who presents to the emerged department with continued abdominal pain. She was seen in the ER and diagnosed with cholecystitis. She had laparoscopic cholecystectomy on Wednesday after a brief bout with increased LFTs
and pain. Last evening she developed nausea and return of symptoms. Denies fever, chills, vomiting, chest pain, or shortness of breath.
Review of Systems
Review of Systems
Allergies reviewed?: Yes
All Other Systems: ROS reviewed and negative except as documented in HPI and ROS
Constitutional: Reports no symptoms
EENT: Reports no symptoms
Respiratory: Reports no symptoms
Cardiac: Reports no symptoms
ABD/GI: Reports abdominal pain
: Reports no symptoms
Musculoskeletal: Reports no symptoms
Skin: Reports no symptoms
Neurological: Reports no symptoms
Endocrine: Reports no symptoms
Hematologic/Lymphatic: Reports no symptoms
Psychiatric: Reports no symptoms
Phy Exam
General Physical Exam
General Presentation: well appearing and no apparent distress
General Skin: warm and dry
General Habitus: normal
General Mental: alert
General Hydration: appears well hydrated
ENT Exam
ENT Exam: EOMI, pharynx normal, neck supple and normocephalic
Eye Exam
Eye Exam: PERRL, cornea clear and conjunctiva normal
Cardiovascular Exam
Cardiovascular Exam: regular rate/rhythm, no edema, no murmur and normal peripheral pulses
Pulmonary Exam
Pulmonary Exam: lungs clear, no respiratory distress, no rales, no crackles, no rhonchi, no stridor, no wheezing and no cough
Gastrointestinal Exam
Gastrointestinal Exam: normal bowel sounds, soft, no organomegaly, no pulsatile mass and non distended
Palpation: generalized: Minimal tenderness
Neurological Exam
Neurological Exam: alert, oriented x3, no motor deficits and speech normal
Musculoskeletal Exam
Musculoskeletal Exam: full ROM and no edema
Skin Exam
Skin Exam: normal color, warm/dry, no rash and no petechia
Psychiatric Exam
Psychiatric Exam: normal mood/affect
Course
Orders/Labs/Results
Orders:
Orders
01/14/24 04:51
Complete Blood Count/With Diff Urgent
Comprehensive Metabolic Panel Urgent
Lipase Urgent
01/14/24 05:38
CT Abd/pelvis W Iv Cont Urgent
Comment:
Reason For Exam: POST CHOLECYSTECTMY PAIN
01/14/24 06:43
Magnesium Citrate [Citroma] 300 ml PO ONCE ONE
01/14/24 06:58
Urinalysis Reflex To Culture Urgent
Date Specimen was Collected: 01/14/24
Time Specimen was Collected: 06:58
Abnormal Lab Results
01/14/24 01/14/24
04:51 06:58
RBC 4.16 L 10^6/uL
(4.20-5.40)
Hgb 11.9 L g/dL
(12.0-16.0)
Hct 36.1 L %
(37.0-47.0)
RDW 15.2 H %
(11.5-14.5)
MPV 11.3 H fL
(7.4-10.4)
Absolute Neuts (auto) 6.7 H 10^3/uL
(1.4-6.5)
Absolute Monos (auto) 0.8 H 10^3/uL
(0.1-0.6)
Lymphocytes % 18.8 L %
(20.5-51.1)
Carbon Dioxide 31 H mmol/L
(22-30)
AST 283 H U/L
(14-36)
ALT 311 H U/L
(0-35)
Alkaline Phosphatase 209 H U/L
(38-126)
Urine Ketones 1+ A
(Negative)
Urine Bilirubin 1+ A
(Negative)
01/14/24 04:51
01/14/24 04:51
Vital Signs
Initial and Last Documented VS:
Initial Vital Signs
Temp Pulse Resp BP Pulse Ox
98 F 71 20 117/84 100
01/14/24 04:25 01/14/24 04:25 01/14/24 04:25 01/14/24 04:25 01/14/24 04:25
Last Documented Vital Signs
Temp Pulse Resp BP Pulse Ox
98 F 80 16 120/82 99
01/14/24 04:25 01/14/24 07:11 01/14/24 07:11 01/14/24 07:11 01/14/24 07:11
*Critical Care Note
Total Time (30-74mins, 75-104mins- exclusive of procedures): Not Applicable
ED Attending Note
-
Portions of this chart may have been created with voice recognition software.� Occasional wrong word or��sound alike� substitutions may have occurred due to the inherent limitations of voice recognition software.
Discharge Plan
Departure
Patient Disposition: Home (Routine Discharge)
Date of Disposition: 01/14/24
Time of Disposition: 06:46
Patient with high blood pressure during this ER visit?: Yes
Condition: Good
Discharge Problem:
Abdominal pain, Constipation
Instructions: Constipation, Adult (DC), Abdominal Pain
Prescriptions:
New
docusate sodium [Colace] 100 mg capsule
100 mg PO BID Qty: 30 0RF
No Action
acetaminophen 325 mg Tablet
650 mg PO Q4HPRN PRN (Reason: Mild Pain / Temp > 101) Qty: 30 0RF
oxycodone 5 mg Tablet
5 mg PO Q4HPRN PRN (Reason: moderate pain) Qty: 20 0RF
Referrals:
Jessie Alatorre PA-C [Family Provider] -
Activity Restrictions/Additional Instructions:
It was a pleasure meeting you and taking part in your care. We hope for your continued healing and wellness.
Please read discharge instructions in their entirety. However, they are for general education and may not describe your exact diagnosis at discharge. Information on your ER visit and medical conditions were discussed with you along with appropriate
follow up information...
If indicated, please take your medications as instructed and indicated on discharge paperwork.
Please schedule a follow up appointment as directed. Call to schedule an appointment
Please return to the emergency department with ANY change in, persisting, or worsening of symptoms. If any of your symptoms do not improve, or persist, or become more severe within 6-12 hours, please return to the emergency department for further
care.
Please return to the emergency department if you develop a headache, neck pain/stiffness, fever greater than 100.4F, chest pain, shortness of breath, persistent nausea, vomiting, slurred speech, difficulty walking, numbness/tingling, weakness, signs
of infection or any other symptoms that are worrisome to you.
If you have any questions or concerns please do not hesitate to call the Hospital at or E-mail me directly at [email or web address]
Interventions
Interventions:
*Risk Screen - Suicide Last Done: 01/14/24 04:25
*General Assessment Last Done: 01/14/24 04:25
*Neglect/Abuse Screening Last Done: 01/14/24 04:25
ED- Fall Risk Assessment Last Done: 01/14/24 04:25
*ED COVID-19 Vaccine History Last Done: 01/14/24 04:25
*Nursing Disposition Last Done: 01/14/24 07:14
WB-Xhuhxe-Okauynkndb Assessment Last Done: 01/14/24 06:02
ED-Skin Assessment Last Done: 01/14/24 06:02
Discharge Date and Time
Discharge Date/Time: 01/14/24 07:14
Print Language: AMHARIC
[2024-01-14] MEDS: CITROMA 300 ML PO (06:55)
[2024-01-14 07:11] VITALS: BP 120/82
[2024-01-14 07:21] LABS: Urine Albumin Trace (Neg - Trace); Urine Bilirubin 1+ (Negative); Urine Character Clear (Clear); Urine Color Yellow; Urine Glucose Negative (Negative); Urine Ketone 1+ (Negative); Urine Leukocyte Negative (Negative); Urine Nitrite Negative (Negative); Urine Occult Blood Negative (Negative); Urine Specific Gravity 1.025 (<1.030); Urine Urobilinogen Negative (Neg - 1+)
== END 2024-01-14 07:14 | disposition home or self-care (01) ==
LOC: EMR 04:21
PROVIDERS: EMERGENCY PHYSICIAN Student in an Organized Health Care Education/Training Program; FAMILY PHYSICIAN Physician Assistant
DX: R10.9 Unspecified abdominal pain (principal); K59.00 Constipation, unspecified
CPT/HCPCS: 99285; 74177; 80053; 81003; 83690; 85025; Q9967